=== PATIENT | male | born 1945 | race Caucasian/White ===

== ENCOUNTER 2019-09-09 00:44 | Day surgery (SDC) | payer MEDICARE, OTHER, SELFPAY ==
[2019-09-02 14:12] VITALS: BMI 35.9
[2019-09-09 06:12] VITALS: BP 154/85; PULSE 67; RESP 18; TEMP 36.6; O2SAT 95; BMI 36.1
[2019-09-09] MEDS: LACTATED RINGERS 1,000 ML 150 ML IV CONT (06:50)
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
[2019-09-09 07:50] VITALS: BP 95/63; PULSE 60; RESP 18; O2SAT 98
[2019-09-09 08:00] VITALS: BP 113/75; PULSE 83; RESP 20; O2SAT 96
[2019-09-09 08:10] VITALS: BP 122/76; PULSE 91; RESP 26; O2SAT 95
== END 2019-09-09 08:26 | disposition home or self-care (01) ==
PROVIDERS: PCP Family Medicine; Visit Provider Internal Medicine Gastroenterology
PROC: 0DJD8ZZ Inspection of Lower Intestinal Tract, Via Natural or Artificial Opening Endoscopic (ICD-10-PCS; CPT 45378; principal; 2019-09-09 07:30)
DX: Z12.11 Encounter for screening for malignant neoplasm of colon (principal); D12.2 Benign neoplasm of ascending colon; I11.0 Hypertensive heart disease with heart failure; I50.9 Heart failure, unspecified; J44.9 Chronic obstructive pulmonary disease, unspecified; I48.0 Paroxysmal atrial fibrillation; E11.9 Type 2 diabetes mellitus without complications; G47.33 Obstructive sleep apnea (adult) (pediatric); Z79.01 Long term (current) use of anticoagulants; Z86.73 Personal history of transient ischemic attack (TIA), and cerebral infarction without residual deficits; Z85.118 Personal history of other malignant neoplasm of bronchus and lung; Z87.891 Personal history of nicotine dependence; E66.9 Obesity, unspecified; Z68.36 Body mass index [BMI] 36.0-36.9, adult
CPT/HCPCS: 45385; 88305; J2704; J7120

== ENCOUNTER 2020-03-20 11:12 | Outpatient (CLI) | payer MEDICARE, OTHER, SELFPAY ==
--- NOTE | ~2020-03-20 | US_ITS ---
EXAMINATION: US carotid duplex BI DATE: 03/20/2020 11:50 INDICATION: Bilateral carotid stenosis. TECHNIQUE: Grayscale, color Doppler, and pulsed Doppler images of the cervical carotid arteries were obtained. The degree of vessel stenosis is placed in one of the following categories: normal, <50%, 5 0-69%, >=70% but less than near-occlusion, near-occlusion, or total occlusion. Note that percent sten osis relative to normal distal artery lumen diameter is indirectly measured from velocity measurement s as described by Eric, et al. Radiology 2003; 229:340-346. COMPARISON: Ultrasound 03/02/2019 FINDINGS: There is an arrhythmia. RIGHT: The right common carotid artery (CCA) peak systolic velocity (PSV) is 61 cm/s. The right internal car otid artery (ICA) PSV is 62 cm/s. The right ICA end-diastolic velocity (EDV) is 15 cm/s. The right IC A/CCA PSV ratio is 1.0. Grayscale and color Doppler images yield an estimate of <50% diameter reducti on from plaque in the ICA. There is antegrade flow in the right vertebral artery. LEFT: The left CCA PSV is 53 cm/s. The left ICA PSV is 53 cm/s. The left ICA EDV is 18 cm/s. The left ICA/C CA PSV ratio is 1.0. Grayscale and color Doppler images yield an estimate of <50% diameter reduction from plaque in the ICA. There is antegrade flow in the left vertebral artery. IMPRESSION: 1. <50% stenosis in the right internal carotid artery. 2. <50% stenosis in the left internal carotid artery. 3. Arrhythmia. Reviewed, dictated and finalized at location A.
== END 2020-03-20 11:13 | disposition home or self-care (01) ==
LOC: ANHIMG 11:14
PROVIDERS: PCP Family Medicine; Visit Provider Internal Medicine Cardiovascular Disease
DX: I65.23 Occlusion and stenosis of bilateral carotid arteries (principal)
CPT/HCPCS: 93880

== ENCOUNTER 2020-04-15 19:30 | Inpatient (IN) | payer MEDICARE, OTHER, SELFPAY ==
[2020-04-15] VITALS (8 sets, daily range): BP systolic 104–178; BP diastolic 73–99; PULSE 70–151; RESP 18–28; TEMP 36.2–37.7; O2SAT 91–98; BMI 33.3; BMI 33.1
--- NOTE | ~2020-04-15 | XR_ITS ---
EXAMINATION: XR chest 1V portable EXAM DATE: 04/15/2020 19:58 INDICATION: Coughing up blood. History COPD, atrial fibrillation, lung cancer, CHF. TECHNIQUE: Portable AP frontal chest x-ray was obtained. Comparison is made to prior examination from 06/07/2019. FINDINGS: CT injectable right-sided portacatheter. There is right humeral hardware. No confluent cons olidation, pneumothorax or pleural effusion suspected. The cardiomediastinal silhouette is prominent but magnified on this AP technique. The bones are osteopenic. There are bony degenerative changes. IMPRESSION: No acute cardiopulmonary findings. Reviewed, dictated and finalized at location A.
--- NOTE | ~2020-04-15 | CT_ITS ---
EXAMINATION: CT chest wo con DATE: 04/16/2020 01:04 INDICATION: Hemoptysis. TECHNIQUE: Computed tomography (CT) of the chest was performed without intravenous contrast. The dose -length product was 779.75 mGy-cm. Automated exposure control and iterative reconstruction technique were employed. COMPARISON: Pet/CT dated 01/08/2019 FINDINGS: There is a right lower lobe/hilar mass measuring approximately 4 cm, increased in size comp ared with prior examination allowing for differences of technique, consistent with malignancy until p roven otherwise. No significant pleural or pericardial effusion. Motion artifact limits the examinati on. The above described soft tissue mass surrounds the right mainstem bronchus. There is narrowing of the right lower lobe bronchus. There are centrilobular nodules in the right middle and lower lobe, s uspicious for pneumonia. There is right lower lobe atelectasis. Calcified granulomas in the spleen. IMPRESSION: 1. Enlarging right hilar/lower lobe mass, consistent with an otherwise. There is encasement of the ri ght lower lobe bronchus which is narrowed. 2: Centrilobular nodules right middle and lower lobe, suspicious for pneumonia. Reviewed, dictated and finalized at location A. IMPRESSION: 1. Enlarging right hilar/lower lobe mass, consistent with an otherwise. There i s encasement of the right lower lobe bronchus which is narrowed. 2: Centrilobular nodules right middle and lower lobe, suspicious for pneumonia.
--- NOTE | 2020-04-15 19:33 | ECG_ITS ---
Measurements Intervals [place] Rate: 149 P: WV: 0 QRS: 75 QRSD: 81 T: 263 QT: 225 QTc: 354 Interpretive Statements ATRIAL FIBRILLATION WITH RAPID VENTRICULAR RESPONSE ST-T WAVE ABNORMALITY IN ANTEROLAT/INF LEADS- CONSIDER ISCHEMIA BASELINE WANDER- II, III, AVF, V4-V6 ABNORMAL ECG Electronically Signed On 04-16-2020 7:38:06 CDT by Slava Guzman D.O.
[2020-04-15 19:44] LABS: Basophils Absolute Auto 0.1 K/mm3 (0.0-0.1); Basophils Percent Auto 0.5 % (0.2-1.2); Eosinophils Percent Auto 0.3 % (0-4.4); Hematocrit 42.3 % (42.0-52.0); Hemoglobin 13.9 g/dL (14.0-18.0); Immature Granulocyte Absolute 0.04 K/mm3 (0.00-0.031); Immature Granulocyte Percent A 0.4 % (0-0.5); Lymphocytes Absolute Auto 1.03 K/mm3 (0.9-3.2); Lymphocytes Percent Auto 10.6 % (18.3-44.2); Mean Corpuscular HGB Conc 32.9 g/dl (32-36); Mean Corpuscular Hemoglobin 30.1 pg (26-34); Mean Corpuscular Volume 91.6 fl (80-100); Mean Platelet Volume 11.4 fl (7.4-10.4); Monocytes Percent Auto 10.7 % (2.6-8.5); Neutrophils Absolute Auto 7.6 K/mm3 (1.3-6.7); Neutrophils Percent Auto 77.5 % (45.5-73.1); Platelet Count Result 159 k/mm3 (150-375); Red Blood Count 4.62 M/mm3 (4.6-6.20); Red Cell Distribution Width 13.9 % (11.5-14.5); White Blood Count 9.8 K/mm3 (4.5-10.0)
[2020-04-15] MEDS: dilTIAZem HCl INJ 25 MG/5 ML VIAL 10 MG IV PUSH ×2 (19:51→21:25)
[2020-04-15 19:59] LABS: Anion Gap 8 mmol/L (8-16); Blood Urea Nitrogen 18 mg/dL (9-20); Calcium 8.6 mg/dL (8.4-10.2); Carbon Dioxide 29 mmol/L (22-30); Chloride 97 mmol/L (98-107); Estimated CRCL calculation 50 ml/min; Estimated Glomerular Filt Rate 50; Glucose 131 mg/dL (75-110); Potassium 3.6 mmol/L (3.4-5.0); Sodium 134 mmol/L (137-145)
[2020-04-15 20:07] LABS: Alanine Aminotransferase 20 U/L (4-50); Albumin Level 3.8 g/dL (3.5-5.1); Alkaline Phosphatase 95 U/L (38-126); Aspartate Amino Transferase 23 U/L (17-59)
[2020-04-15 20:14] LABS: Prothrombin Time 22.4 Seconds (11.1-14.7)
[2020-04-15 20:15] LABS: Partial Thromboplastin Time 41.1 SECONDS (22.3-36.8)
[2020-04-15 20:21] LABS: NT Pro B Type Natriuretic Pept 1050 PG/ML (5-100); Troponin I 0.021 ng/mL (0.000-0.034)
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
--- NOTE | 2020-04-15 23:45 | PC.NURSE ---
This patient, Ismael Reeder, was admitted to IMU Room 207-01. Patient/family oriented to hospital policies and general routines including ID bracelet, bed and alarms, visiting hours, pain management, procedures, bathroom and other care routines, personal items, smoking policy, room service/diet, and visiting hours. Valuables list has been completed. Information on how to activate the Rapid Response Team has been discussed. Patient/Family are encouraged to report perceived risks to care and to ask questions if they do not understand what they are told or what they should do.
--- NOTE | 2020-04-15 23:51 | PM.CNPUL ---
Assessment and Plan Assessment and plan (1) Cough with hemoptysis: Code(s): R04.2 - Hemoptysis Status: Acute Assessment and Plan: Abrupt onset of hemoptysis with a large amount of blood lost within minutes. He says that during about 3 - 5 minutes, he coughed 3 cups of blood then it stopped. This is a huge quantity, and perhaps it was an over estimate. There is a possibility that he had a GI bleed, although he says that he did not vomit blood. The differential for his hemoptysis includes his lung cancer in the RLL, new endobronchial lesions, PLAN: Chest CT, antitussives, hold his Xarelto, monitor for additional hemoptysis. Bronchoscopy if bleeding returns. May need ice cold saline and topical epinephrine to control hemoptysis. 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: Code(s): C34.31 - Malignant neoplasm of lower lobe, right bronchus or lung Status: Chronic Assessment and Plan: Treated at [facility], chemoradiation, now on immunotherapy (4) Obstructive sleep apnea: Code(s): G47.33 - Obstructive sleep apnea (adult) (pediatric) Status: Chronic Assessment and Plan: on CPAP 13 cm at home; would not continue at this point with hemoptysis (5) Chronic obstructive pulmonary disease: Qualifiers: COPD type: unspecified COPD Qualified Code(s): J44.9 - Chronic obstructive pulmonary disease, unspecified Code(s): J44.9 - Chronic obstructive pulmonary disease, unspecified Status: Chronic Assessment and Plan: Baseline condition, on Anoro inhaler for his controller medication and albuterol for rescue use History of Present Illness History of Present Illness Consult date: 04/16/20 Requesting physician: Pedro Pablo Veloz MD Reason for consult: other (hemoptysis) Chief complaint: Hemoptysis with coughing, A. fib with RVR Narrative: NEW: Ismael Reeder is a 75 yo man with Stage I squamous cell lung cancer RLL diagnosed 02/06/2019, treated in a clinical trial at [facility] with chemoradiation, XRT May 2019, now monthly immunotherapy study drug through his port. His last visit with his oncologist Dr Gustabo Hernandez was yesterday. His doctor told him that his shortness of breath may be due to his cardiac condition, and told him to contact Dr. Aguilera who treats him for atrial fibrillation with Xarelto. The patient states that he has had a cough for 40 days, usually yellow sputum, sometimes brown or darker sputum. About 12 days ago he was treated with azithromycin and prednisone, did not make much of a difference. This evening around 6:15 p.m. he started coughing a huge amount of blood, estimate by his is 3 cups. This occurred over several minutes then stopped. He decided to come here because his driver engineer is here. His rhythm was atrial fib with RVR. His CXR is clear, H/H is stable, has increase PT and PTT. He has not had this before. He does not have chest pain, increased shortness of breath, vomiting, fever, chest trauma, has no history of pulmonary emboli. PMH: NIDDM, ERIK, COPD, lung cancer Stage I squamous cell RLL, atrial fibrillation on Xarelto, kidney stones, HTN, stroke in 1999 with residual left hand poor coordination. AAA s/p EVAR. Review of Systems Constitutional: Constitutional: Denies fever(s) and Denies weight loss ENT: Denies dysphagia and Denies epistaxis Cardiovascular: Comments: he had inc
[2020-04-16] VITALS (27 sets, daily range): BP systolic 108–128; BP diastolic 50–89; PULSE 78–118; RESP 16–20; TEMP 35.9–36.2; O2SAT 91–99
[2020-04-16 00:10] LABS: Troponin I 0.032 ng/mL (0.000-0.034)
[2020-04-16 02:34] LABS: Troponin I 0.035 ng/mL (0.000-0.034)
[2020-04-16 05:36] LABS: Basophils Percent Auto 0.5 % (0.2-1.2); Eosinophils Percent Auto 0.2 % (0-4.4); Hematocrit 37.4 % (42.0-52.0); Hemoglobin 12.3 g/dL (14.0-18.0); Immature Granulocyte Absolute 0.04 K/mm3 (0.00-0.031); Immature Granulocyte Percent A 0.5 % (0-0.5); Immature Platelet Fraction Pct 8.4 % (0.9-11.2); Lymphocytes Absolute Auto 1.26 K/mm3 (0.9-3.2); Lymphocytes Percent Auto 14.8 % (18.3-44.2); Mean Corpuscular HGB Conc 32.9 g/dl (32-36); Mean Corpuscular Hemoglobin 29.7 pg (26-34); Mean Corpuscular Volume 90.3 fl (80-100); Mean Platelet Volume 11.3 fl (7.4-10.4); Monocytes Absolute Auto 1.1 K/mm3 (0.1-0.6); Monocytes Percent Auto 12.5 % (2.6-8.5); Neutrophils Absolute Auto 6.1 K/mm3 (1.3-6.7); Neutrophils Percent Auto 71.5 % (45.5-73.1); Platelet Count Result 135 k/mm3 (150-375); Red Blood Count 4.14 M/mm3 (4.6-6.20); Red Cell Distribution Width 13.8 % (11.5-14.5); White Blood Count 8.5 K/mm3 (4.5-10.0)
[2020-04-16 05:44] LABS: Anion Gap 6 mmol/L (8-16); Blood Urea Nitrogen 17 mg/dL (9-20); Calcium 8.3 mg/dL (8.4-10.2); Carbon Dioxide 28 mmol/L (22-30); Chloride 99 mmol/L (98-107); Estimated CRCL calculation 63 ml/min; Estimated Glomerular Filt Rate > 60; Glucose 129 mg/dL (75-110); Magnesium 2.1 mg/dL (1.6-2.3); Potassium 3.1 mmol/L (3.4-5.0); Sodium 133 mmol/L (137-145)
[2020-04-16 09:02] LABS: Glucose Point of Care 118 (65-105)
[2020-04-16] MEDS: BENZONATATE 100 MG CAPSULE PO ×3 (09:50→17:26)
[2020-04-16] MEDS: SOLIFENACIN 5 MG TABLET 10 MG PO (09:50)
[2020-04-16] MEDS: FUROSEMIDE 80 MG TABLET PO (09:50)
[2020-04-16 11:22] LABS: Hematocrit 37.2 % (42.0-52.0); Hemoglobin 12.4 g/dL (14.0-18.0)
--- NOTE | 2020-04-16 11:55 | PM.CNCAR ---
Assessment and Plan Additional Plan 75-year-old man with chronic atrial fibrillation. He was in his can state of rapid ventricular response yesterday when in the emergency room with hemoptysis. He is now on a high dose of diltiazem IV and his heart rate appears to be reasonably well controlled. It seems relatively clear that his gross hemoptysis is probably related to his enlarging right lower lobe malignancy which is encasing the bronchus as mentioned in the CT report. In my opinion Xarelto is obviously contraindicated. I am going to place him back on his previous oral regimen of diltiazem and metoprolol to provide heart rate control for his chronic atrial fibrillation. At this time I do not perceive any other new obvious cardiac issues. Obviously his prognosis is not good regarding his malignancy. Mauri Lin MD [facility] History of Present Illness History of Present Illness Consult date/time: date of service:04/16/20 11:55 Consult reason: atrial fibrillation Reason For Visit: Hemoptysis with coughing, A. fib with RVR Narrative: This is a 75-year-old man apparently well known to Dr. Aguilera of our practice with a history of chronic atrial fibrillation. I am being consulted to see him for management of his atrial fibrillation by the hospitalist. The patient apparently has a history of paroxysmal atrial fibrillation has had a number of cardioversions and recently has been in chronic atrial fibrillation with rate control and anticoagulation being provided. His rate control regimen includes metoprolol 50 mg daily as well as diltiazem 240 mg daily. His anticoagulation has been with Xarelto 20 mg daily. The patient also unfortunately has a diagnosis of lung cancer and follows with an oncologist at [facility]. Yesterday apparently the patient started to notice some abrupt significant amounts of hemoptysis while he was having dinner and of course became alarmed about this and came to the emergency room for evaluation. The home off to cyst spontaneously subsided. He was noted to be in AFib with rapid ventricular response when he was in the emergency room being evaluated he was placed on a high dose of intravenous diltiazem his beta-willam has not been ordered from the best of what I can see on the records. I in this setting I am being asked to see him in consultation his Xarelto of course has been discontinued. The patient's and his family were told that when he had the symptoms of dyspnea and hemoptysis he should see his family law paralegal so they state that is why he came here to [place] instead of going to [place] were his oncologist practice. The patient had a pulmonary CT scan done upon this admission which appears to demonstrate an enlarging right lower lobe mass encasing the bronchus presumably the source of the hemoptysis. Review of Systems Constitutional: Constitutional: Reports no additional constitutional complaints Eyes: Eyes: Reports no additional eye complaints ENT: Reports system reviewed and no additional complaints, except as documented Cardiovascular: Cardiovascular: Reports palpitations Respiratory: Respiratory: Reports hemoptysis Gastrointestinal: Gastrointestinal: Reports no additional gastrointestinal complaints Genitourinary: Genitourinary: Reports no additional male genitourinary complaints Musculoskeletal: Musculoskeletal: Reports no additional musculoskeletal complaints Integumentary/Breasts: Skin/Breast: Reports system reviewed and no additional complaints, except as docu Neurologic: Reports system reviewed and no additional complaints, except as documented Endocrine: Endocrine: Reports no additional endocrine complaints Hematologic/Lymphatic: Hematologic/Lymphatic: Reports no additional hematologic/lymphatic complaints Allergic/Immunologic: Allergic/Immunologic: Reports no additional allergic/immunologic complaints [facility] Past Medical History Medical History (Reviewed 04/16/20 @ 06:29
[2020-04-16] MEDS: POTASSIUM CHLORIDE 20 MEQ PACKET (FOR LIQUID) 40 MEQ PO (12:30)
[2020-04-16] MEDS: METOPROLOL SUCCINATE EXT REL 50 MG TABCR PO (12:30)
[2020-04-16 12:39] LABS: Glucose Point of Care 172 (65-105)
--- NOTE | 2020-04-16 16:49 | PM.IMPN ---
Progress Note: A&P Assessment and Plan (1) Atrial fibrillation with rapid ventricular response: Code(s): I48.91 - Unspecified atrial fibrillation Status: Acute Assessment and Plan: Admit to IMU, telemetry, Continue Diltiazem IV for rate control Check TSH w/ reflex T4, Echocardiogram. Hold anticoagulation seconadary to hemoptysis. Cardiology consult in am. 04/16/20 16:49 patient is 75 year male with history of right lower lobe malignancy and been seen by oncologist and being treated, patient presented emergency department with a complaint of hemoptysis patient had significant amount of bleeding, patient is also history proximal atrial fibrillation was also in RVR and was started on IV diltiazem and patient had been anticoagulated with Xarelto now on hold for hemoptysis, patient is seen by loss mitigation specialist patient hemoptysis has now resolved, will consult patient's oncologist further recommendation, patient was seen by fibreglass laminator and stop the IV diltiazem, started the patient on oral diltiazem as well as metoprolol to control his heart rate, and patient is off Xarelto. today patient states is feeling much better denies any cough shortness of breath chest pain palpitation fever or chills (2) Cough with hemoptysis: Code(s): R04.2 - Hemoptysis Status: Acute Assessment and Plan: Likely secondary to lung cancer. Monitor H/H, transfuse prn. Pulmonology has been consulted. (3) Type 2 diabetes mellitus without complication, without long-term current use of insulin: Code(s): E11.9 - Type 2 diabetes mellitus without complications Status: Chronic Assessment and Plan: Accuchecks, SSI Coverage, Hypoglycemic protocol. 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 (5) Chronic anticoagulation: Code(s): Z79.01 - [facility] (current) use of anticoagulants Status: Chronic Assessment and Plan: Hold anticoagulation secondary to hemoptysis. (6) Obstructive sleep apnea: Code(s): G47.33 - Obstructive sleep apnea (adult) (pediatric) Status: Chronic Assessment and Plan: Continue home CPAP. (7) HTN (hypertension): Qualifiers: Hypertension type: unspecified Qualified Code(s): I10 - Essential (primary) hypertension Code(s): I10 - Essential (primary) hypertension Status: Chronic Assessment and Plan: stable. Monitor blood pressure. Resume metoprolol. (8) Chronic obstructive pulmonary disease: Qualifiers: COPD type: unspecified COPD Qualified Code(s): J44.9 - Chronic obstructive pulmonary disease, unspecified Code(s): J44.9 - Chronic obstructive pulmonary disease, unspecified Status: Chronic Assessment and Plan: Levalbuterol nebs. (9) CHF (congestive heart failure): Qualifiers: Heart failure type: unspecified Heart failure chronicity: chronic Qualified Code(s): I50.9 - Heart failure, unspecified Code(s): I50.9 - Heart failure, unspecified Status: Chronic Assessment and Plan: Monitor fluid status, Is and Os, daily weights. Resume beta willam and Lasix. Subjective Date/time seen: 04/16/20 16:49 patient is 75 year male with history of right lower lobe malignancy and been seen by oncologist and being treated, patient presented emergency department with a complaint of hemoptysis patient had significant amount of bleeding, patient is also history proximal atrial fibrillation was also in RVR and was started on IV diltiazem and patient had been anticoagulated with Xarelto now on hold for hemoptysis, patient is seen by loss mitigation specialist patient hemoptysis has now resolved, will consult patient's oncologist further recommendation, patient was seen by fibreglass laminator and stop the IV diltiazem, started the p
[2020-04-16 17:19] LABS: Glucose Point of Care 138 (65-105)
--- NOTE | 2020-04-16 19:43 | PM.PNPUL ---
Progress Note: A&P Assessment and Plan (1) Cough with hemoptysis: Code(s): R04.2 - Hemoptysis Status: Acute Assessment and Plan: Abrupt onset of hemoptysis with a large amount of blood lost within minutes, during about 3 - 5 minutes, he coughed 3 cups of blood then it stopped. Since admission, this has decreased. Source is likely RLL lung cancer. PLAN: antitussives, hold his Xarelto, monitor for additional hemoptysis. Bronchoscopy if bleeding returns. (2) Atrial fibrillation with rapid ventricular response: Code(s): I48.91 - Unspecified atrial fibrillation Status: Acute Assessment and Plan: controlled, no longer on diltiazem. 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: Code(s): C34.31 - Malignant neoplasm of lower lobe, right bronchus or lung Status: Chronic Assessment and Plan: Treated at [facility], chemoradiation, now on immunotherapy (4) Obstructive sleep apnea: Code(s): G47.33 - Obstructive sleep apnea (adult) (pediatric) Status: Chronic Assessment and Plan: on CPAP 13 cm at home; would not continue at this point with hemoptysis (5) Chronic obstructive pulmonary disease: Qualifiers: COPD type: unspecified COPD Qualified Code(s): J44.9 - Chronic obstructive pulmonary disease, unspecified Code(s): J44.9 - Chronic obstructive pulmonary disease, unspecified Status: Chronic Assessment and Plan: Baseline condition, on Anoro inhaler for his controller medication and albuterol for rescue use Subjective Date/time seen: 04/16/20 19:43 This 75 yo man is seen in follow up for massive hemoptysis. He has had very little coughing of blood in the last day. He is not feeling short of breath and is not having chest pain. Review of Systems Constitutional: Constitutional: Denies fever(s) and Denies weight loss ENT: Denies dysphagia and Denies epistaxis Respiratory: Respiratory: Reports hemoptysis Gastrointestinal: Gastrointestinal: Denies dysphagia Exam Const: General: cooperative, comfortable and no acute distress Orientation/consciousness: patient oriented x3 HENMT: Head: normal to inspection Ears: hearing grossly normal bilaterally General nose exam: Normal external nose present, Normal nares present and Epistaxis present (scant amounts of blood in the nares) bilaterally Face and sinus: normal facial exam Mouth: Yes Normal oral and palatal mucosa present Eyes: General: appearance normal, both eyes and all related structures Neck: Neck: normal visual inspection Chest: Chest palpation & inspection: normal inspection of the chest Resp: Effort & Inspection: normal respiratory effort (decreased breath sounds in bases) Auscultation: clear to auscultation bilaterally Cardio: Rate: regular rate Rhythm: regular rhythm GI: Inspection: normal to inspection Skin: General skin exam: normal color Neuro: General: patient oriented x3 Extrem: General: normal to inspection Right lower extremity: edema Left lower extremity: edema Psych: Mental Status: mental status grossly normal Objective Data Vital Signs Vital Signs: Vital Signs - 24 hr 04/15/20 19:52 04/15/20 20:45 09/11/20 21:15 Temperature Pulse Rate 143 H 120 H 128 H Respiratory Rate 25 H 28 H Blood Pressure 135/99 H 132/89 150/98 H Pulse Oximetry 96 97 04/15/20 21:37 04/15/20 22:09 04/15/20 23:21 Temperature 36.2 C L Pulse Rate 129 H 118 H 70 Respiratory Rate 18 20 Blood Pressure 135/91 H 132/82 104/73 Pulse Oximetry 96 95
[2020-04-16 20:19] LABS: Glucose Point of Care 176 (65-105)
--- NOTE | 2020-04-16 23:14 | ECHO_ITS ---
Patient Info Name: Ismael Reeder Age: 75 years : 1945 Gender: Male Ht: 69 in Wt: 238 lbs BSA: 2.33 m2 HR: 102 bpm BP: 124 / 72 mmHg Heart Rhythm: Atrial Fibrillation Technical Quality: Good Exam Date: 04/16/2020 8:00 AM Exam Location: [facility] Pulmonary Exam Room: 207 Patient Status: Inpatient Admit Date: 04/15/2020 Staff Ordering Physician: Aryan Hopkins MD [employer] Frame Operator: Sana Woodward RCS Attending Provider: Aryan Hopkins MD Referring Physician: Sandeep COLLAZO; Exam Type: CA echo doppler color flow Study Info Indications - chf afib /rvr Complete two-dimensional, color flow and Doppler transthoracic echocardiogram is performed. Summary 1. Complete two-dimensional, color flow and Doppler transthoracic echocardiogram is performed. 2. Left ventricular chamber dimension is normal. 3. Left ventricular systolic function is normal, estimated at 60-65%. 4. The left ventricular diastolic function is abnormal. 5. E/e' 14 is mildly elevated. 6. Left atrial chamber dimension is moderately enlarged. 7. Right atrial chamber dimension is mildly enlarged. 8. The mitral valve has moderately calcified annulus. 9. There is trace mitral valve regurgitation. 10. There is trace tricuspid valve regurgitation. 11. No pulmonary hypertension, estimated pulmonary arterial systolic pressure is 38 mmHg. Left Ventricle E/e' 14 is mildly elevated. Left ventricular chamber dimension is normal. Left ventricular systolic function is normal, estimated at 60-65%. The left ventricular diastolic function is abnormal. Right Ventricle Right ventricular chamber dimension is normal. Right ventricular systolic function is normal. Left Atria Left atrial chamber dimension is moderately enlarged. Right Atria Right atrial chamber dimension is mildly enlarged. Aortic Valve The aortic valve is trileaflet. There is no aortic valve stenosis. There is no aortic valve regurgitation. Pulmonic Valve There is no pulmonic regurgitation. Mitral Valve The mitral valve has moderately calcified annulus. There is no mitral valve stenosis. There is trace mitral valve regurgitation. Tricuspid Valve There is trace tricuspid valve regurgitation. No pulmonary hypertension, estimated pulmonary arterial systolic pressure is 38 mmHg. Pericardium/Pleural There is no pericardial effusion. Inferior Vena Cava Normal inferior vena cava with >50% collapse upon inspiration consistent with normal right atrial pressure, 5 mmHg. Aorta The aortic root size at the sinus of Valsalva is normal. Left Ventricular Outflow Tract Name Value Normal LVOT 2D LVOT Diameter 2.1 cm LVOT Doppler LVOT Peak Gradient 6 mmHg LVOT Mean Gradient 3 mmHg LVOT VTI 22 cm LVOT VTI/AV VTI Ratio 0.6 LVOT Stroke Volume 77 ml LVOT CO 17.9 l/min LVOT CI 7.7 l/min/m2 Pulmonic Valve
[2020-04-17] VITALS (18 sets, daily range): BP systolic 95–147; BP diastolic 48–90; PULSE 81–120; RESP 16–24; TEMP 36.1–36.6; O2SAT 88–97
[2020-04-17 04:57] LABS: Hematocrit 36.7 % (42.0-52.0); Hemoglobin 12.2 g/dL (14.0-18.0); Mean Corpuscular HGB Conc 33.2 g/dl (32-36); Mean Corpuscular Hemoglobin 30.8 pg (26-34); Mean Corpuscular Volume 92.7 fl (80-100); Mean Platelet Volume 11.6 fl (7.4-10.4); Platelet Count Result 144 k/mm3 (150-375); Red Blood Count 3.96 M/mm3 (4.6-6.20); Red Cell Distribution Width 13.8 % (11.5-14.5); White Blood Count 8.4 K/mm3 (4.5-10.0)
[2020-04-17 05:16] LABS: Anion Gap 6 mmol/L (8-16); Blood Urea Nitrogen 18 mg/dL (9-20); Calcium 8.2 mg/dL (8.4-10.2); Carbon Dioxide 27 mmol/L (22-30); Chloride 100 mmol/L (98-107); Estimated CRCL calculation 58 ml/min; Estimated Glomerular Filt Rate 59; Glucose 139 mg/dL (75-110); Potassium 3.2 mmol/L (3.4-5.0); Sodium 133 mmol/L (137-145)
[2020-04-17 08:16] LABS: Glucose Point of Care 100 (65-105)
[2020-04-17] MEDS: BENZONATATE 100 MG CAPSULE PO ×3 (08:50→17:18)
[2020-04-17] MEDS: FUROSEMIDE 80 MG TABLET PO (08:50)
[2020-04-17] MEDS: SOLIFENACIN 5 MG TABLET 10 MG PO (08:50)
[2020-04-17] MEDS: METOPROLOL SUCCINATE EXT REL 50 MG TABCR PO (08:50)
--- NOTE | 2020-04-17 09:25 | WPDONCPN ---
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 H/O Squamous cell cancer of the RLL. Stage I, treated as part of clinical trial, since he was not an operable candidate. After RT completed in May 2019, he was placed on a maintenance regimen of durvalumab. Last treatment (cycle 11) on March 24, 2020. Admitted with persistent cough with hemoptysis. Pulmonary consultation note read, and agree with plan, based on how he does clinically. Treatment on Hold. Follow up with Dr. Spain at [facility]. Time Spent With Patient Time with patient: 15 - 25 minutes Review of Systems Respiratory Respiratory: Reports cough and Reports hemoptysis Objective Data Vital Signs Vital Signs: Vital Signs - 24 hr 04/16/20 09:27 04/16/20 09:40 04/16/20 10:00 Temperature Pulse Rate 86 86 113 H Respiratory Rate 18 18 Blood Pressure Pulse Oximetry 94 04/16/20 12:00 04/16/20 12:30 04/16/20 14:00 Temperature 36.2 C L Pulse Rate 99 78 81 Respiratory Rate 20 Blood Pressure 125/71 Pulse Oximetry 95 04/16/20 14:32 04/16/20 14:40 04/16/20 16:00 Temperature Pulse Rate 84 84 87 Respiratory Rate 18 18 Blood Pressure Pulse Oximetry 04/16/20 16:32 04/16/20 18:00 04/16/20 19:35 Temperature 36.2 C L 36.0 C L Pulse Rate 91 118 H 81 Respiratory Rate 20 18 Blood Pressure 123/62 128/67 Pulse Oximetry 97 99 04/16/20 20:00 04/16/20 21:32 04/16/20 21:38 Temperature Pulse Rate 85 87 83 Respiratory Rate 20 Blood Pressure Pulse Oximetry 99 96 04/16/20 21:40 04/16/20 22:00 04/16/20 22:30 Temperature Pulse Rate 87 88 105 H Respiratory Rate 20 Blood Pressure Pulse Oximetry 91 04/16/20 23:56 04/17/20 00:00 04/17/20 02:00 Temperature 36.2 C L Pulse Rate 106 H 97 104 H Respiratory Rate 18 Blood Pressure 124/89 Pulse Oximetry 96 96 04/17/20 02:48 04/17/20 02:55 04/17/20 04:00 Temperature 36.6 C Pulse Rate 96 110 H 120 H Respiratory Rate 20 20 20 Blood Pressure 100/59 L Pulse Oximetry 94 96 04/17/20 06:00 04/17/20 07:54 04/17/20 08:00 Temperature 36.1 C L Pulse Rate 98 83 102 H Respiratory Rate 16 24 H Blood Pressure 120/72 Pulse Oximetry 93 95 04/17/20 08:50 Temperature Pulse Rate 113 H Respiratory Rate Blood Pressure Pulse Oximetry Intake/Output Intake/Output: Intake & Output 04/14/20 04/15/20 04/16/20 04/17/20 23:59 23:59 23:59 23:59 Intake Total 1680 350 Output Total 2175 900 Balance -495 -550 Meds/Results Medications: Active Medications Generic Name Dose Route Start Last Admin Trade Name Freq PRN Reason Stop Dose Admin Acetaminophen 650 mg 04/15/20 23:29 Tylenol Tablet PO Q4H PRN Mild Pain (1-3) or Fever Benzonatate 100 mg 04/16/20 09:00 04/17/20 08:50 Tessalon Perles PO 100 mg TID ELVIA Administration Dextrose 12.5 gm 04/15/20 23:28 Dextrose 50% Syringe IV PUSH PRN PRN Hypoglycemia Protocol Diltiazem HCl 240 mg 04/16/20 11:55 04/17/20 08:50 Cardizem Cd PO 240 mg QAM ELVIA Administration Furosemide 80 mg 04/16/20 09:00 04/17/20 08:50 Lasix Tablet PO 80 mg QAM ELVIA Administration Glucagon 1 mg 04/15/20 23:28 Glucagon For Inj IM PRN PRN Hypoglycemia Protocol Glucose 15 gm 04/15/20 23:28 Glutose 15 PO PRN PRN Hypoglycemia Protocol Dextrose 1,000 mls @ 100 mls/hr 04/15/20 23:28 Dextrose 5% 1,000 Ml IVPB PRN PRN Hypoglycemia Protocol Insulin Aspart 3 - 6 units 04/16/20 08:00 04/17/20 08:18 Novolog SUB-Q Not Given TIDWM ELVIA Protocol Levalbuterol HCl 1.25 mg 04/16/20 02:04/17/20 07:54 Xopenex 1.25 Mg/0.5 Ml I
[2020-04-17] MEDS: POTASSIUM CHLORIDE 20 MEQ PACKET (FOR LIQUID) 40 MEQ PO (12:08)
[2020-04-17 13:22] LABS: Glucose Point of Care 116 (65-105)
--- NOTE | 2020-04-17 16:03 | PM.IMPN ---
Progress Note: A&P Assessment and Plan (1) Atrial fibrillation with rapid ventricular response: Code(s): I48.91 - Unspecified atrial fibrillation Status: Acute Assessment and Plan: Admit to IMU, telemetry, Continue Diltiazem IV for rate control Check TSH w/ reflex T4, Echocardiogram. Hold anticoagulation seconadary to hemoptysis. Cardiology consult in am. patient is 75 year male with history of right lower lobe malignancy and been seen by oncologist and being treated, patient presented emergency department with a complaint of hemoptysis patient had significant amount of bleeding, patient is also history proximal atrial fibrillation was also in RVR and was started on IV diltiazem and patient had been anticoagulated with Xarelto now on hold for hemoptysis, patient is seen by tray checker patient hemoptysis has now resolved, patient was seeb by oncologist squamous cell cancer of the RLL. Stage I, he completed his radiation therapy in May 2020, once discharged patient will follow-up with his oncology for further recommendation and treatment, patient was seen by hot roll laminator and stop the IV diltiazem, started the patient on oral diltiazem as well as metoprolol to control his heart rate, and patient is off Xarelto. today patient states is feeling much better denies any cough shortness of breath chest pain palpitation fever or chills (2) Cough with hemoptysis: Code(s): R04.2 - Hemoptysis Status: Acute Assessment and Plan: Likely secondary to lung cancer. Monitor H/H, transfuse prn. Pulmonology has been consulted. (3) Type 2 diabetes mellitus without complication, without long-term current use of insulin: Code(s): E11.9 - Type 2 diabetes mellitus without complications Status: Chronic Assessment and Plan: Accuchecks, SSI Coverage, Hypoglycemic protocol. 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 (5) Chronic anticoagulation: Code(s): Z79.01 - [facility] (current) use of anticoagulants Status: Chronic Assessment and Plan: Hold anticoagulation secondary to hemoptysis. (6) Obstructive sleep apnea: Code(s): G47.33 - Obstructive sleep apnea (adult) (pediatric) Status: Chronic Assessment and Plan: Continue home CPAP. (7) HTN (hypertension): Qualifiers: Hypertension type: unspecified Qualified Code(s): I10 - Essential (primary) hypertension Code(s): I10 - Essential (primary) hypertension Status: Chronic Assessment and Plan: stable. Monitor blood pressure. Resume metoprolol. (8) Chronic obstructive pulmonary disease: Qualifiers: COPD type: unspecified COPD Qualified Code(s): J44.9 - Chronic obstructive pulmonary disease, unspecified Code(s): J44.9 - Chronic obstructive pulmonary disease, unspecified Status: Chronic Assessment and Plan: Levalbuterol nebs. (9) CHF (congestive heart failure): Qualifiers: Heart failure type: unspecified Heart failure chronicity: chronic Qualified Code(s): I50.9 - Heart failure, unspecified Code(s): I50.9 - Heart failure, unspecified Status: Chronic Assessment and Plan: Monitor fluid status, Is and Os, daily weights. Resume beta willam and Lasix. Subjective Date/time seen: patient is 75 year male with history of right lower lobe malignancy and been seen by oncologist and being treated, patient presented emergency department with a complaint of hemoptysis patient had significant amount of bleeding, patient is also history proximal atrial fibrillation was also in RVR and was started on IV diltiazem and patient had been anticoagulated with Xarelto now on hold for hemoptysis, patient is seen by tray checker patient hemoptysis has now resolve
[2020-04-17] MEDS: ALPRAZolam 0.25 MG TABLET PO (17:17)
[2020-04-17 17:19] LABS: Hematocrit 41.2 % (42.0-52.0); Hemoglobin 13.9 g/dL (14.0-18.0)
[2020-04-17 17:49] LABS: Glucose Point of Care 154 (65-105)
--- NOTE | 2020-04-18 12:44 | PM.TDS ---
Transfer Discharge Sum: Prov Provider Date of admission: 04/15/20 21:05 Primary care physician: Farhan Robledo MD Admitting clinician: Aryan Hopkins MD Consults: 04/15/20 21:07 Consult to Physician Routine Comment: Consulting Provider: Mona Piper Reason for consultation: Hemoptysis with coughing Has provider been notified: Yes 04/15/20 23:11 Consult to Physician Routine Comment: Consulting Provider: Sharla Amador sponge buffer/MD group to consult: Reason for consultation: Afib w/ RVR Has provider been notified: Yes 04/16/20 Consult to Physician Routine Comment: Consulting Provider: Remy Martinez Reason for consultation: R. lung cancer Has provider been notified: Yes DS: Admitting Diagnosis Admitting Diagnosis Admitting Diagnosis: Hemoptysis with coughing, A. fib with RVR DS: Discharge Diagnosis Discharge Diagnosis (1) Cough with hemoptysis: Code(s): R04.2 - Hemoptysis Status: Acute Assessment and Plan: Ismael Reeder is a 75 year old male patient is 75 year male with history of right lower lobe malignancy and been seen by oncologist and being treated, patient presented emergency department with a complaint of hemoptysis patient had significant amount of bleeding, patient is also history proximal atrial fibrillation was also in RVR and was started on IV diltiazem and patient had been anticoagulated with Xarelto now on hold for hemoptysis, patient is seen by resident programs assistant patient hemoptysis has now resolved, patient was seeb by oncologist 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 today patient states is feeling much better denies any cough shortness of breath chest pain palpitation fever or chills, patient is a frequency of hemoptysis he has was increasing discussed with resident programs assistant recommended to transfer the patient to [facility], patient was accepted will transfer the patient to the [facility] Transfer Discharge Sum: Med Medications Active and Home Medications: Home Medications diltiazem HCl 240 mg PO DAILY 06/07/19 [History Confirmed 04/16/20] metoprolol tartrate 50 mg PO DAILY 06/07/19 [History Confirmed 04/16/20] furosemide 40 mg tablet 80 mg PO QAM 06/26/19 [History Confirmed 04/16/20] rivaroxaban 20 mg tablet 20 mg PO HS 06/26/19 [History Confirmed 04/16/20] umeclidinium 62.5 mcg-vilanterol 25 mcg/actuation powdr for inhalation 1 inhalation INHALATION Q24H 06/26/19 [History Confirmed 04/16/20] levalbuterol HCl 1.25 mg/3 mL solution for nebulization 1.25 mg INHALATION Q4H #90 ml 03/21/20 [Rx Confirmed 04/16/20] solifenacin 10 mg PO DAILY 04/15/20 [History Confirmed 04/16/20] Transfer Discharge Sum: Hosp Hospital Course Hospital course: Ismael Reeder is a 75 year old male patient is 75 year male with history of right lower lobe malignancy and been seen by oncologist and being treated, patient presented emergency department with a complaint of hemoptysis patient had significant amount of bleeding, patient is also history proximal atrial fibrillation was also in RVR and was started on IV diltiazem and patient had been anticoagulated with Xarelto now on hold for hemoptysis, patient is seen by resident programs assistant patient hemoptysis has now resolved, patient was seeb by oncologist 

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
--- NOTE | 2020-04-19 10:49 | P.PNPL_ITS ---
Progress Note: A&P Assessment and Plan (1) Cough with hemoptysis: Code(s): R04.2 - Hemoptysis Status: Acute Assessment and Plan: Transfer to [place] for urgent Bronchoscopy with possible bronchial artery embolization Subjective Date/time seen: 04/17/20 10:49 Interval history: Patient seen on 04/17/20. He is a 75 y/o male with COPD and Lung CA currently being treated with radiation and chemotherapy at [facility]. He was admitted with hemoptysis. When I spoke to him in the morning he said the hemoptysis was slowing and and is minimal but later in the afternoon, Dr Larkin informed that the hemoptysis has gotten worse. Xaraleto has been held for 1-2 days now and he is on no NSAID or antiplatelet agents. I then recommended that he be transferred to [place] for urgent bronchoscopy and possible bronchial artery emobolization Review of Systems Review of Systems: All systems reviewed & are unremarkable except as noted in HPI and below Exam Const: General: comfortable and no acute distress HENMT: General nose exam: Normal nares present Eyes: General: appearance normal, both eyes and all related structures Sclera: sclerae normal Neck: Neck: supple Resp: Other: bilateral fair air entry with rhonchi Cardio: Rate: regular rate Rhythm: regular rhythm GI: Auscultation: normal bowel sounds Skin: General skin exam: normal color Neuro: Speech: normal speech Sensory Exam: normal sensation Extrem: General: normal to inspection Psych: Mental Status: mental status grossly normal Affect: normal affect Objective Data Intake/Output Intake/Output: Intake & Output 04/16/20 04/17/20 04/18/20 04/19/20 23:59 23:59 23:59 23:59 Intake Total 1680 1160 Output Total 2175 1350 Balance -495 -190 Meds/Results Radiology Results: ITS Impressions Chest X-Ray 04/15/20 20:04 IMPRESSION: No acute cardiopulmonary findings. Chest CT 04/16/20 08:37 IMPRESSION: 1. Enlarging right hilar/lower lobe mass, consistent with an otherwise. There is encasement of the right lower lobe bronchus which is narrowed. 2: Centrilobular nodules right middle and lower lobe, suspicious for pneumonia.
== END 2020-04-17 20:00 | disposition short-term general hospital (02) | DRG 181 ==
LOC: ANHED 21:03 → ANHIMU 23:54
PROVIDERS: Emergency Medicine; Admitting Provider Family Medicine; Emergency Provider Emergency Medicine; PCP Family Medicine; Visit Provider Family Medicine
DX: C34.31 Malignant neoplasm of lower lobe, right bronchus or lung (principal); R04.2 Hemoptysis; I48.20 Chronic atrial fibrillation, unspecified; I69.354 Hemiplegia and hemiparesis following cerebral infarction affecting left non-dominant side; J44.9 Chronic obstructive pulmonary disease, unspecified; I11.0 Hypertensive heart disease with heart failure; I50.9 Heart failure, unspecified; F32.9 Major depressive disorder, single episode, unspecified; G47.33 Obstructive sleep apnea (adult) (pediatric); M48.061 Spinal stenosis, lumbar region without neurogenic claudication; E78.5 Hyperlipidemia, unspecified; Z79.01 Long term (current) use of anticoagulants; Z85.828 Personal history of other malignant neoplasm of skin; Z87.891 Personal history of nicotine dependence
CPT/HCPCS: 36415; 71045; 71250; 80048; 80076; 83735; 83880; 84443; 84484; 85014; 85018; 85025; 85027; 85055; 85610; 85730; 87040; 93005; 93306; 94640; 96374; 99285; A9270